=== PATIENT | female | born 1985 | race Hispanic/Latino ===

== ENCOUNTER 2018-08-21 15:59 | Emergency (ER) | payer OTHER ==
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
--- NOTE | 2018-08-21 18:49 | RAD REPORT ---
EXAM DESCRIPTION: RAD - Ribs Left - 08/21/2018 6:42 pm CLINICAL HISTORY: Left breast pain from fall COMPARISON: Chest Single View dated 08/21/2018; Abdomen Pelvis W Contrast dated 04/27/2017 FINDINGS: No displaced left-sided rib fractures seen. No aggressive rib lesion. IMPRESSION: A displaced rib fracture is not identified
--- NOTE | 2018-08-21 19:06 | EDPHYS ---
Physician Documentation [facility] Name: Yue Koch Age: 32 yrs Sex: Female : 1985 Arrival Date: 08/21/2018 Time: 16:02 Bed 9 Private MD: Agustín Mcpherson ED Physician Yovany Escobar HPI: 08/21 18:49 This 32 yrs old Female presents to ER via Ambulatory with complaints of Left pm1 Chest Pain From Fall. 18:49 The patient or guardian reports chest pain that is located primarily in the left pm1 breast. The pain does not radiate. Associated signs and symptoms: Pertinent negatives: abdominal pain, cough, nausea, shortness of breath, vomiting. 18:49 The chest pain is described as sharp. Modifying factors: the symptoms are aggravated by pm1 cough, deep breath, certain positions involving movement of left arm. The patient has not recently seen a physician. Patient was ice skating and she felt forward on her left breast. No headache, head injury, or neck pain. No LOC. [employer]IVER: 16:13 LMP 07/24/2018 Historical: - Allergies: 16:11 No Known Drug Allergies; hj - Home Meds: 16:11 None [Active]; hj - PMHx: 16:11 None; hj - PSHx: 16:11 breast implant; hj - Immunization history:: Adult Immunizations not up to date. - Social history:: Smoking status: Patient/guardian denies using tobacco, Patient uses alcohol, occasionally. - Ebola Screening: : Patient negative for fever greater than or equal to 101.5 degrees Fahrenheit, and additional compatible Ebola Virus Disease symptoms Patient denies exposure to infectious person Patient denies travel to an Ebola-affected area in the 21 days before illness onset. ROS: 18:49 Constitutional: Negative for fever, chills, and weight loss, Eyes: Negative for injury, pm1 pain, redness, and discharge, ENT: Negative for injury, pain, and discharge, Neck: Negative for injury, pain, and swelling. 18:49 Respiratory: Negative for shortness of breath, cough, wheezing, and pleuritic chest pain, Abdomen/GI: Negative for abdominal pain, nausea, vomiting, diarrhea, and constipation, Back: Negative for injury and pain, : Negative for injury, bleeding, discharge, and swelling, MS/Extremity: Negative for injury and deformity, Skin: Negative for injury, rash, and discoloration, Neuro: Negative for headache, weakness, numbness, tingling, and seizure. 18:49 Cardiovascular: Positive for left breast pain, Negative for edema, orthopnea, palpitations. Exam: 18:49 Constitutional: This is a well developed, well nourished patient who is awake, alert, pm1 and in no acute distress. Head/Face: Normocephalic, atraumatic. Neck: Trachea midline, no thyromegaly or masses palpated, and no cervical lymphadenopathy. Supple, full range of motion without nuchal rigidity, or vertebral point tenderness. No Meningismus. Skin: Warm, dry with normal turgor. Normal color with no rashes, no lesions, and no evidence of cellulitis. MS/ Extremity: Pulses equal, no cyanosis. Neurovascular intact. Full, normal range of motion. 18:49 Cardiovascular: Regular rate and rhythm with a normal S1 and S2. No gallops, murmurs, or rubs. Normal PMI, no JVD. No pulse deficits. Respiratory: Lungs have equal breath sounds bilaterally, clear to auscultation and percussion. No rales, rhonchi or wheezes noted. No increased work of breathing, no retractions or nasal flaring. Back: No spinal tenderness. No costovertebral tenderness. Full range of motion. 18:49 Chest/axilla: Inspection: normal, Palpation: tenderness, that totally reproduces the patient's complaints, focal point just below left breast, Cele SWANSON reject opener and filler present for examination. 18:49 Neuro: Orientation: is normal, Motor: moves all fours. Vital Signs: 16:13 BP 121 / 73; Pulse 95; Resp 18; Temp 98.7(O); Pulse Ox 100% on R/A; Weight 61.23 kg; hj Height 5 ft. 3 in. (160.02 cm); Pain 5/10; 18:48 BP 109 / 71; Pulse 71; Resp 16; Pulse Ox 100% on R/A; Pain 0/10; iw 16:13 Body Mass Index 23.91 (61.23 kg, 160.02 cm) MDM: 18:00 Patient medically screened. pm1 19:04 Data reviewed: vital signs. Data interpreted: Pulse oximetry: on room air is 100 %. pm1 Interpretation: normal. Counseling: I had a detailed discussion with the patient and/or guardian regarding: the historical points, exam findings, and any diagnostic results supporting the discharge/admit diagnosis, radiology results, the need for outpatient follow up, to return to the emergency department if symptoms worsen or persist or if there are any questions or concerns that arise at home. 08/21 18:14 Order name: Urine Dipstick--Ancillary (enter results) iw 08/21 18:06 Order name: Chest Single View XRAY; Complete Time: 19:04 pm1 08/21 18:06 Order name: Ribs Left XRAY; Complete Time: 19:04 pm1 08/21 18:06 Order name: Urine Dipstick-Ancillary (obtain specimen); Complete Time: 18:10 pm1 08/21 18:06 Order name: Urine Test (obtain specimen); Complete Time: 18:10 pm1 08/21 18:13 Order name: EKG Electrocardiogram EDMS Administered Medications: No medications were administered Disposition: 08/21/18 19:05 Discharged to Home. Impression: Contusion of left front wall of thorax. - Condition is Stable. - Discharge Instructions: Chest Contusion, Adult. - Prescriptions for Naprosyn 500 mg Oral Tablet - take 1 tablet by ORAL route 2 times per day As needed take with food; 30 tablet. Tylenol- Codeine #3 300-30 mg Oral Tablet - take 2 tablets by ORAL route every 6 hours As needed; 20 tablet. Cyclobenzaprine 10 mg Oral Tablet - take 1 tablet by ORAL route every 8 hours As needed; 30 tablet. - Medication Reconciliation Form, Thank You Letter, Prescription Opioid Use form. - Follow up: Emergency Department; When: As needed; Reason: Worsening of condition. Follow up: Private Physician; When: 2 - 3 days; Reason: Recheck today's complaints, Continuance of care, Re-evaluation by your physician. - Problem is new. - Symptoms have improved. Addendum: 09/03/2018 07:34 Co-signature as Attending Physician, Yovany Escobar MD I agree with the assessment and k dr plan of care. Signatures: Dispatcher [employer] EDKY Yovany Escobar MD MD kdr Chretien, Felicia, RN RN fc Hector, Jamaal, RN RN hj Marinas, Wolf, BATTERY CONTAINER FINISHING HAND BATTERY CONTAINER FINISHING HAND pm1 Corrections: (The following items were deleted from the chart) 08/21 19:17 19:06 08/21/2018 19:05 Discharged to Home. Impression: Contusion of left front wall of fc thorax. Condition is Stable. Forms are Medication Reconciliation Form, Thank You Letter, Antibiotic Education, Prescription Opioid Use. Follow up: Emergency Department; When: As needed; Reason: Worsening of condition. Follow up: Private Physician; When: 2 - 3 days; Reason: Recheck today's complaints, Continuance of care, Re-evaluation by your physician. Problem is new. Symptoms have improved. pm1
--- NOTE | 2018-08-21 19:06 | ER ---
Nurse's Notes [facility] Name: Yue Koch Age: 32 yrs Sex: Female : 1985 Arrival Date: 08/21/2018 Time: 16:02 Bed 9 Private MD: Agustín Mcpherson Diagnosis: Contusion of left front wall of thorax Presentation: 08/21 16:09 Presenting complaint: Patient states: i fell ice skating on my L breast area; now it hj hurts to breathe; like something poking me; reports SOB; denies N/V;. Transition of care: patient was not received from another setting of care. Onset of symptoms was August 21, 2018. Risk Assessment: Do you want to hurt yourself or someone else? Patient reports no desire to harm self or others. Initial Sepsis Screen: Does the patient meet any 2 criteria? No. Patient's initial sepsis screen is negative. Does the patient have a suspected source of infection? No. Patient's initial sepsis screen is negative. Care prior to arrival: None. 16:09 Method Of Arrival: Ambulatory 16:09 Acuity: YESENIA 3 Triage Assessment: 16:12 General: Appears in no apparent distress. uncomfortable, Behavior is calm, cooperative, hj appropriate for age. Pain: Complains of pain in left breast Pain does not radiate. Pain currently is 5 out of 10 on a pain scale. PROFILER: 16:13 LMP 07/24/2018 Historical: - Allergies: 16:11 No Known Drug Allergies; hj - Home Meds: 16:11 None [Active]; hj - PMHx: 16:11 None; hj - PSHx: 16:11 breast implant; hj - Immunization history:: Adult Immunizations not up to date. - Social history:: Smoking status: Patient/guardian denies using tobacco, Patient uses alcohol, occasionally. - Ebola Screening: : Patient negative for fever greater than or equal to 101.5 degrees Fahrenheit, and additional compatible Ebola Virus Disease symptoms Patient denies exposure to infectious person Patient denies travel to an Ebola-affected area in the 21 days before illness onset. Screenin:12 Abuse screen: Denies threats or abuse. Denies injuries from another. Nutritional hj screening: No deficits noted. Tuberculosis screening: No symptoms or risk factors identified. Fall Risk Fall in past 12 months (25 points). Assessment: 18:11 General: Appears in no apparent distress. Behavior is calm, cooperative. Pain: iw Complains of pain in left breast. Neuro: Level of Consciousness is awake, alert, obeys commands, Oriented to person, place, time, situation, Moves all extremities. Full function. Cardiovascular: Patient's skin is warm and dry. Respiratory: Reports shortness of breath cough that is non-productive, Respiratory effort is even, unlabored, Respiratory pattern is regular, symmetrical. Derm: Skin is intact, is healthy with good turgor. Musculoskeletal: Range of motion: intact in all extremities. 18:48 Reassessment: Patient appears in no apparent distress at this time. Patient and/or iw family updated on plan of care and expected duration. Pain level reassessed. Patient is alert, oriented x 3, equal unlabored respirations, skin warm/dry/pink. Vital Signs: 16:13 BP 121 / 73; Pulse 95; Resp 18; Temp 98.7(O); Pulse Ox 100% on R/A; Weight 61.23 kg; hj Height 5 ft. 3 in. (160.02 cm); Pain 5/10; 18:48 BP 109 / 71; Pulse 71; Resp 16; Pulse Ox 100% on R/A; Pain 0/10; iw 16:13 Body Mass Index 23.91 (61.23 kg, 160.02 cm) hj ED Course: 16:02 Patient arrived in ED. rg4 16:02 Agustín Mcpherson MD is Private Physician. rg4 16:11 Triage completed. hj 16:13 Arm band placed on right wrist. hj 16:14 Patient has correct armband on for positive identification. Placed in gown. Bed in low hj position. Call light in reach. Side rails up X 1. 16:23 EKG done, by database software technician. reviewed by Yovany Escobar MD. sm3 17:52 Wolf Bahena NP is PHCP. pm1 17:52 Yovany Escobar MD is Attending Physician. pm1 18:10 Cele Hernandez, KIKI is Primary Nurse. iw 18:12 No provider procedures requiring assistance completed. iw 18:41 Chest Single View XRAY In Process Unspecified. EDMS 18:41 Ribs Left XRAY In Process Unspecified. EDMS 19:15 Patient did not have IV access during this emergency room visit. iw Administered Medications: No medications were administered Outcome: 19:05 Discharge ordered by . pm1 19:16 Discharged to home ambulatory. iw 19:16 Condition: good 19:16 Discharge instructions given to patient, Instructed on discharge instructions, follow up and referral plans. medication usage, Demonstrated understanding of instructions, follow-up care, medications, Prescriptions given X 3. 19:17 Patient left the ED. fc Signatures: Dispatcher [employer] EDNC Elmira Evangelista RN RN Cele Hernandez RN RN Jamaal Young RN RN Wolf Bahena NP LOAD BLOCKER pm1 Rubi Chavez rg4 Kelly Valadez sm3 Corrections: (The following items were deleted from the chart) 16:11 16:09 Presenting complaint: Patient states: i fell ice skating on my L breast area; now hj it hurts to breathe; like something poking me; reports SOB; denies N/V; hj 16:15 16:13 Pulse 95bpm; Resp 18bpm; Pulse Ox 100% RA; Temp 98.7F Oral; 61.23 kg; Height 5 hj ft. 3 in.; BMI: 23.9; Pain 5/10; hj
[2018-08-21 19:20] LABS: Urine Blood 2+ (NEG); Urine Glucose NEGATIVE (NEG); Urine Protein NEGATIVE (NEG); Urine Specific Gravity 1.025 (1.005-1.030)
[2018-08-21 20:03] VITALS: TEMP 98.7; O2SAT 100
[2018-08-21 20:06] VITALS: BP 109/71
--- NOTE | 2018-08-22 13:56 | EKG ---
Test Date: 2018-08-21 Test Time: 16:18:13 Durability Technician: JUAN MEASUREMENT RESULTS: Intervals: Rate: 81 MT: 154 QRSD: 74 QT: 354 QTc: 411 [place]: P: 54 MT: 154 QRS: 90 T: 74 INTERPRETIVE STATEMENTS: Normal sinus rhythm Rightward axis Borderline ECG No previous ECG available for comparison Electronically Signed On 08-22-18 13:54:00 PET CARE ATTENDANT by Jared Cagle
== END 2018-08-21 19:17 | disposition home or self-care (01) ==
LOC: ER 15:59
DX: S20.212A Contusion of left front wall of thorax, initial encounter (principal); W18.30XA Fall on same level, unspecified, initial encounter; Y93.21 Activity, ice skating; Y92.89 Other specified places as the place of occurrence of the external cause; Z98.82 Breast implant status
CPT/HCPCS: 71045; 81003; 93005; 99283

== ENCOUNTER 2019-05-30 19:06 | Emergency (ER) | payer OTHER ==
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
[2019-05-30 22:24] VITALS: TEMP 98.7
[2019-05-30 22:25] VITALS: BP 106/75; O2SAT 97
--- NOTE | 2019-05-31 08:09 | RAD REPORT ---
EXAM DESCRIPTION: RAD - Hand Right 3 View - 05/30/2019 8:31 pm CLINICAL HISTORY: Right hand pain, hand trauma COMPARISON: None. FINDINGS: Oblique fracture is present near the base of the fourth metacarpal. Articular surface at t he base of the metacarpal does not appear to be involved. Approximately 4 millimeter posterior or nancy rickey displacement of the distal fracture fragment seen. Approximately 20 degree angulation deformity p resent. No other fractures seen. No acute bone or joint finding otherwise noted. Soft tissue swelling is pres ent over the dorsum of the hand. No foreign body. IMPRESSION: Fracture of the proximal right fourth metacarpal as detailed.
== END 2019-05-30 22:15 | disposition home or self-care (01) ==
LOC: ER 19:06
PROC: 2W3CX1Z Immobilization of Right Lower Arm using Splint (ICD-10-PCS; principal; 2019-05-30)
DX: S62.314A Displaced fracture of base of fourth metacarpal bone, right hand, initial encounter for closed fracture (principal); W22.8XXA Striking against or struck by other objects, initial encounter; Y93.89 Activity, other specified; Y92.9 Unspecified place or not applicable
CPT/HCPCS: 99283

== ENCOUNTER 2019-06-03 08:44 | Day surgery (SDC) | payer OTHER ==
[2019-06-03] MEDS ORDERED: Ringers Lactate 1,000 ML IV ONE (08:50)
[2019-06-03] MEDS ORDERED: CEFAZOLIN/SWI 1gm 1 GM/10 ML SYR ONE (08:50)
[2019-06-03 09:01] LABS: Specific Gravity >= 1.030 (1.005-1.030)
[2019-06-03] MEDS ORDERED: PROPOFOL 200 MG/20 ML VIAL IV ONE (09:05)
[2019-06-03] MEDS ORDERED: FENTANYL CITR 100 MCG/2 ML ONE (09:05)
[2019-06-03] MEDS ORDERED: LIDOCAINE 2% MPF 5 ML VIAL ONE (09:05)
[2019-06-03] MEDS ORDERED: MIDAZOLAM HCL 2 MG/2 ML INJ ONE (09:05)
[2019-06-03] MEDS ORDERED: ONDANSETRON 4 MG/2 ML VIAL ONE ×2 (09:06→12:09)
[2019-06-03] MEDS ORDERED: dexAMETHasone 4 MG/ML VIAL ONE (09:06)
[2019-06-03] MEDS ORDERED: dexAMETHasone 10 MG/ML VIAL ONE (10:00)
[2019-06-03] MEDS ORDERED: KETOROLAC 30 MG/ML INJ ONE (10:51)
[2019-06-03] MEDS: MIDAZOLAM HCL 2 MG/2 ML INJ ONE ×2 (11:15→11:25)
[2019-06-03] MEDS: HYDROMORPHONE HCL 2 MG/ML inj ONE ×4 (11:16→11:34)
--- NOTE | 2019-06-03 11:27 | RAD REPORT ---
EXAM DESCRIPTION: RAD - Hand Right 2 View - 06/03/2019 11:10 am FINDINGS: There were 11 portable C-arm views obtained during a fluoroscopic assisted placement of fi xation hardware into the fourth metacarpal. No suspicious or unexpected findings. Fluoro time was 2.1 minutes.
[2019-06-03] MEDS ORDERED: HYDROMORPHONE HCL 1 MG/ML INJ ONE (11:29)
[2019-06-03] MEDS: FENTANYL CITR 100 MCG/2 ML ONE ×2 (11:40→11:49)
[2019-06-03] MEDS ORDERED: CODEINE 30MG/APAP 300MG TAB ONE (12:35)
[2019-06-03] MEDS ORDERED: CODEINE 30MG/APAP 300MG TAB PO ONE (12:40)
[2019-06-03 13:49] VITALS: TEMP 97.5
[2019-06-03 13:50] VITALS: BP 104/63; O2SAT 99
--- NOTE | 2019-06-04 12:35 | OP ---
Surgeon: Robert Mays MD Process Control Programmer: Melvin. Preoperative Diagnosis: Fractured right 4th metacarpal base. Postoperative Diagnosis: Fractured right 4th metacarpal base. Procedure Performed: Percutaneous pinning, splint. Anesthesia: General. Procedure In Detail: After satisfactory induction of general anesthesia, closed reduction was perfor med with the C-arm guidance. Then, the arm was prepped with Betadine scrub, Betadine paint, dry ster ile drapes placed in the usual manner. The arm was elevated, exsanguinated with an Esmarch. Tourniq uet inflated to 250 mmHg and placed onto the C-arm and then a 0.045 K-wire was passed from distal to proximal at the MCP of the right 4th metacarpal. Two wires were placed reducing the fracture. C-arm document reduction. Wire was cut and bent. Dressed with Xeroform, 2 inch Carmen, Kerlix, and ulnar gutter splint. Patient tolerated the procedure well and returned to Recovery. MCP 90, PIP and DIP 0 . GH/MODL Voice ID: [id number] Report ID: [id number]
== END 2019-06-03 13:15 | disposition home or self-care (01) ==
LOC: OR 08:44
PROVIDERS: ATTEND Specialist
PROC: 0PSP34Z Reposition Right Metacarpal with Internal Fixation Device, Percutaneous Approach (ICD-10-PCS; principal; 2019-06-03 09:45)
DX: S62.314A Displaced fracture of base of fourth metacarpal bone, right hand, initial encounter for closed fracture (principal); F32.9 Major depressive disorder, single episode, unspecified
CPT/HCPCS: 81025; 73120; 26608; J2704; J2250 ×2; J1170; J3010 ×2; J1100; J0690; J7120; J2405 ×2

== ENCOUNTER → 2023-08-08 | Emergency (ER) | payer OTHER ==
--- NOTE | 2023-08-08 12:31 | RAD REPORT ---
EXAM DESCRIPTION: US - OB Limited - 08/08/2023 12:05 pm CLINICAL HISTORY: with vaginal bleeding COMPARISON: None FINDINGS: Uterus measures 12 x 8 x 11 centimeters. Single live intrauterine with a crown rump length 7.7 centimeters. Cardiac activity 162 lillian ts per minute Cervix measures 5 centimeters and is closed. It contains a mucus plug. Several hypoechoic masses are present within the uterine wall. Largest measures 4 centimeters. Amniotic fluid normal. Left ovary normal in size and echotexture. Right ovary not seen secondary to overlying bowel gas. Right and left adnexa are unremarkable. IMPRESSION: Single live intrauterine . Estimated gestational age 13 weeks 0 days BETH 02/07/2024 Several hypoechoic masses within the uterine wall probably fibroids. Less likely these represent cont ractions or hemorrhage. It is recommended that the patient have a followup ultrasound in approximatel y 4 to 5 weeks. At this time a survey could also be performed
[2023-08-08 12:43] LABS: Specific Gravity 1.006 (1.005-1.030)
[2023-08-08 12:49] LABS: Specific Gravity 1.006 (1.005-1.030); Urine Bacteria <20 /HPF (<20); Urine Bilirubin NEGATIVE (Negative); Urine Blood Negative (Negative); Urine Clarity Turbid (Clear); Urine Color Colorless (Yellow); Urine Glucose NEGATIVE (Negative); Urine Protein NEGATIVE (Negative); Urine RBC <5 /HPF (None Seen); Urine Urobilinogen Normal (Normal)
[2023-08-08 12:58] LABS: Absolute Lymphocytes (CBC) 1.5 K/uL (0.7-4.9); Lymphocytes % 20.8 % (15.3-44.8); MCV 91.5 fL (80-100); MPV 8.2 fL (7.6-11.3); Platelets 274 thou/uL (152-406); RBC Red Blood Cell Count 4.15 M/uL (3.86-4.86)
[2023-08-08 13:05] LABS: Potassium 3.4 mEq/L (3.5-5.1)
--- NOTE | 2023-08-08 14:30 | ER ---
Nurse's Notes [facility] Name: Yue Koch Age: 37 yrs Sex: Female : 1985 Arrival Date: 08/08/2023 Time: 11:14 Bed 13 Private MD: Diagnosis: Threatened Presentation: 08/08 11:28 Chief complaint: Spotty brown vaginal bleeding and brief intermittent left lower hb abdominal pain that started an hour ago.. Pt is approx 17 weeks , BETH 02/04, . Sees Dr. Bai in [place]. Coronavirus screen: At this time, the client does not indicate any symptoms associated with coronavirus-19. Ebola Screen: No symptoms or risks identified at this time. Initial Sepsis Screen: Does the patient meet any 2 criteria? No. Patient's initial sepsis screen is negative. Does the patient have a suspected source of infection? No. Patient's initial sepsis screen is negative. Risk Assessment: Do you want to hurt yourself or someone else? Patient reports no desire to harm self or others. Onset of symptoms was August 08, 2023. 11:28 Method Of Arrival: Ambulatory hb 11:28 Acuity: YESENIA 3 hb Triage Assessment: 12:31 General: Appears in no apparent distress. Behavior is calm, cooperative, appropriate bp for age. Pain: Denies pain. : Reports vaginal bleeding that is spotty. Historical: - Allergies: 11:31 No Known Drug Allergies; hb - Home Meds: 11:31 None [Active]; hb - PMHx: 11:31 None; hb - PSHx: 11:31 None; hb - Immunization history:: Adult Immunizations up to date. - Social history:: Smoking status: Patient denies any tobacco usage or history of. - Family history:: not pertinent. - Hospitalizations: : No recent hospitalization is reported. Screenin:31 [facility] ED Fall Risk Assessment (Adult) History of falling in the last 3 months, bp including since admission No falls in past 3 months (0 pts). Abuse screen: Denies threats or abuse. Denies injuries from another. Nutritional screening: No deficits noted. Tuberculosis screening: No symptoms or risk factors identified. Assessment: 12:31 General: SEE TRIAGE NOTE. bp 14:00 Reassessment: Patient appears in no apparent distress at this time. Patient is alert, bp oriented x 3, equal unlabored respirations, skin warm/dry/pink. Vital Signs: 11:28 BP 127 / 73; Pulse 79; Resp 16; Temp 98.3; Pulse Ox 100% on R/A; Weight 62.6 kg; Height hb 5 ft. 3 in. ; Pain 0/10; 13:59 BP 132 / 67; Pulse 61; Resp 13; Pulse Ox 100% ; bp 11:28 Body Mass Index 24.45 (62.60 kg, 160.02 cm) hb 11:28 Pain Scale: Adult hb ED Course: 11:16 Patient arrived in ED. im 11:28 Ken Blood MD is Attending Physician. rn 11:31 Triage completed. hb 11:31 Arm band placed on. hb 12:06 US OB Limited In Process Unspecified. EDMS 12:17 Agustín Ayala, RN is Primary Nurse. bp 12:25 Inserted saline lock: 22 gauge in right forearm, using aseptic technique. Blood bp collected. 12:31 Patient has correct armband on for positive identification. bp 14:56 No provider procedures requiring assistance completed. IV discontinued, intact, bp bleeding controlled, No redness/swelling at site. Pressure dressing applied. Administered Medications: No medications were administered Outcome: 14:29 Discharge ordered by MD. rn 14:56 Discharged to home ambulatory, bp 14:56 Condition: stable 14:56 Discharge instructions given to patient, Instructed on discharge instructions, follow up and referral plans. Demonstrated understanding of instructions, follow-up care, 14:56 Patient left the ED. bp Signatures: Dispatcher [employer] EDMS Ken Blood MD MD rn Baxter, Heather RN RN Agustín Zamora, RN RN Raquel Cobb im
--- NOTE | 2023-08-08 14:30 | EDPHYS ---
Physician Documentation [facility] Name: Yue Koch Age: 37 yrs Sex: Female : 1985 Arrival Date: 08/08/2023 Time: 11:14 Bed 13 Private MD: ED Physician Ken Blood HPI: 08/08 12:18 This 37 yrs old Female presents to ER via Ambulatory with complaints of rn Vaginal Bleeding, 16 weeks . 12:18 The patient presents with vaginal bleeding that is light, with no clots. Onset: The rn symptoms/episode began/occurred this morning. Modifying factors: The symptoms are alleviated by nothing, the symptoms are aggravated by nothing. Severity of symptoms: At their worst the symptoms were very mild, in the emergency department the symptoms have improved. The patient has not experienced similar symptoms in the past. at approximately 16 weeks reports noticed possible blood or brown discharge this morning after urinating. No urinary symptoms. No abdominal pain or contractions. No complications with either in the past. No fever. No trauma. Going out of town tomorrow so wanted to make sure baby was okay. Historical: - Allergies: 11:31 No Known Drug Allergies; hb - Home Meds: 11:31 None [Active]; hb - PMHx: 11:31 None; hb - PSHx: 11:31 None; hb - Immunization history:: Adult Immunizations up to date. - Social history:: Smoking status: Patient denies any tobacco usage or history of. - Family history:: not pertinent. - Hospitalizations: : No recent hospitalization is reported. ROS: 12:18 Constitutional: Negative for fever, chills, and weight loss, Abdomen/GI: Negative for rn abdominal pain, nausea, vomiting, diarrhea, and constipation, : Positive for vaginal bleeding Exam: 12:18 Constitutional: This is a well developed, well nourished patient who is awake, alert, rn and in no acute distress. Cardiovascular: Regular rate and rhythm. No pulse deficits. Abdomen/GI: Soft, nontender, no guarding or peritoneal signs Vital Signs: 11:28 BP 127 / 73; Pulse 79; Resp 16; Temp 98.3; Pulse Ox 100% on R/A; Weight 62.6 kg; Height hb 5 ft. 3 in. ; Pain 0/10; 13:59 BP 132 / 67; Pulse 61; Resp 13; Pulse Ox 100% ; bp 11:28 Body Mass Index 24.45 (62.60 kg, 160.02 cm) hb 11:28 Pain Scale: Adult hb MDM: 11:28 Patient medically screened. rn 14:27 Differential diagnosis: uterine fibroids, urinary tract infection. Data reviewed: vital rn signs, nurses notes, lab test result(s), radiologic studies, and as a result, I will discharge patient. Counseling: I had a detailed discussion with the patient and/or guardian regarding the historical points, exam findings, and any diagnostic results supporting the discharge/admit diagnosis, lab results, radiology results, the need for outpatient follow up, to return to the emergency department if symptoms worsen or persist or if there are any questions or concerns that arise at home. Special discussion: I discussed with the patient/guardian in detail that at this point there is no indication for admission to the hospital. It is understood, however, that if the symptoms persist or worsen the patient needs to return immediately for re-evaluation. Based on the history and exam findings, there is no indication for further emergent testing or inpatient evaluation. I discussed with the patient/guardian the need to see the OB Gyne specialist for further evaluation of the symptoms. ED course: No acute findings and workup here. Gave patient results of ultrasound to follow-up with OB. Approximately 13-week fetus with good heart tones and rate as well as fluid. Rh+. Will DC home with return precautions. 08/08 11:28 Order name: Abo/rh Typing; Complete Time: 14:27 rn 08/08 11:28 Order name: Basic Metabolic Panel; Complete Time: 13:37 rn 08/08 11:28 Order name: CBC with Diff; Complete Time: 13:37 rn 08/08 11:28 Order name: Test, Urine; Complete Time: 12:52 rn 08/08 11:28 Order name: Quantitative Hcg; Complete Time: 13:37 rn 08/08 11:28 Order name: Urinalysis w/ reflexes; Complete Time: 12:52 rn 08/08 11:28 Order name: US OB Limited; Complete Time: 12:32 rn 08/08 11:28 Order name: IV Saline Lock; Complete Time: 12:30 rn 08/08 11:28 Order name: Labs collected and sent; Complete Time: 12:30 rn 08/08 11:28 Order name: NPO; Complete Time: 12:30 rn Administered Medications: No medications were administered Disposition Summary: 08/08/23 14:29 Discharge Ordered Notes: Location: Home rn Problem: new rn Symptoms: have improved rn Condition: Stable rn Diagnosis - Threatened rn Followup: rn - With: Private Physician - When: As needed - Reason: Recheck today's complaints, Re-evaluation by your physician Discharge Instructions: - Discharge Summary Sheet rn - Threatened Miscarriage rn - Vaginal Bleeding During , Second Trimester rn Forms: - Medication Reconciliation Form rn - Thank You Letter rn - Antibiotic press feeder broomcorn - Prescription Opioid Use rn - Patient Portal Instructions rn - Leadership Thank You Letter rn Signatures: Dispatcher [employer] EDKen Alejandro MD MD rn Baxter, Heather, RN RN Corrections: (The following items were deleted from the chart) 12:19 12:18 at approximately 16 weeks reports noticed possible blood or brown program manager rn this morning after urinating. No urinary symptoms. No abdominal pain or contractions. No complications with either in the past. No fever. No trauma.. rn
[2023-08-08 15:26] VITALS: TEMP 98.3; O2SAT 100
[2023-08-08 15:39] VITALS: BP 132/67
== END ==
LOC: ER 11:14
DX: O20.0 Threatened abortion (principal)
CPT/HCPCS: 36415; 76815; 80048; 81001; 81025; 84702; 85025; 86900; 86901; 99283